=== PATIENT | female | born 1955 | race Caucasian/White ===

== ENCOUNTER 2019-09-29 20:30 | Emergency (ER) | payer MEDICARE, SELFPAY ==
[2019-09-29 20:32] VITALS: BP 152/78; PULSE 65; RESP 15; TEMP 36.8; O2SAT 99; BMI 25.8
--- NOTE | 2019-09-29 20:50 | ED_ITS ---
HPI - Back Pain/Injury General: Chief Complaint: Back Pain/Injury Stated Complaint: BACK PAIN Time Seen by Provider: 09/29/19 20:33 History of Present Illness: HPI Narrative: Patient has a history of chronic back pain. Patient has been seen Dr. Pena and he has been given pain medicine. Patient's had 2 growths that have showed up on her back months ago and she said they are causing her pain now. She had an ultrasound done on them 8 months ago and I told her thing was fine. Says they have been hurting for quite a while. MD elicited complaint: back pain Pertinent past history: prior back pain Onset (ago): month(s) Timing: intermittent Severity: moderate Similar Symptoms Previously: Yes Quality: sharp Associated symptoms: Reports no associated symptoms; Deny abdominal pain, chills, fever(s), nausea or vomiting Review of Systems Const: Denies: fever, chills or body aches Eyes: Denies: change in vision or blurry vision ENMT: Denies: throat pain or nasal congestion Card: Denies: chest pain or shortness of breath on exertion Resp: Denies: shortness of breath, productive cough or non-productive cough GI: Denies: abdominal pain, nausea or vomiting Musc: Reports: other (Chronic back pain and 2 growths on the left side near her rib area.); Denies: extremity pain Skin/Breast: Denies: rash Neuro: Denies: headache Psych: Denies: anxiety or depression Faustino/Lymph: Denies: easy bruising PFSH ED PFSH: Statuses (acute, chronic, etc) shown below reflect problem list status as previously entered and may not be historically accurate Social History Smoking and tobacco status: current every day smoker Physical Exam Const: COMMON NORMALS: no apparent distress, average body habitus and oriented x3 HENMT: COMMON NORMALS: normocephalic HEAD & SCALP: normal to inspection and normocephalic FACE & SINUS: normal facial exam Eye: COMMON NORMALS: conjunctivae normal GENERAL EYE: normal appearance of both eyes CONJUNCTIVA: Yes conjunctivae normal Neck/C-Spine: COMMON NORMALS: no JVD Chest: COMMONS NORMALS: inspection of chest normal Resp: COMMON NORMALS: normal respiratory effort and clear to auscultation bilaterally AUSCULTATION: clear to auscultation bilaterally Cardio: COMMON NORMALS: no JVD, regular rate and regular rhythm RATE: regular rate RHYTHM: regular rhythm GI: COMMON NORMALS: normal to inspection, nondistended, normoactive bowel sounds Back/Pelvis: OTHER: She has 2 areas on the left side that feel a lot like lipomas. They are tender there is no redness or erythema. They are slightly mobile BACK IMAGE (FEMALE): 1. 2. Extremity: COMMON NORMALS: normal to inspection and full ROM Neuro: COMMON NORMALS: oriented x3 Course Vital Signs: Vital signs: Vital Signs Temperature 98.3 F 09/29/19 20:32 Pulse Rate 65 09/29/19 20:32 Respiratory Rate 15 09/29/19 20:32 Blood Pressure 152/78 09/29/19 20:32 Pulse Oximetry 99 09/29/19 20:32 Coding Level of Care Code ED Die Casting Supervisor for Tuan Morrissey
[2019-09-29] MEDS: ketorolac 60 mg/2 mL INJ IM (21:03)
[2019-09-29] MEDS: HYDROcodone-acetaminophen 7.5-325 mg Tablet 1 TAB PO (21:04)
[2019-09-29 21:15] VITALS: PULSE 88; RESP 19; O2SAT 96
== END 2019-09-29 21:16 | disposition home or self-care (01) ==
PROVIDERS: Emergency Provider Nurse Practitioner Family; Family Provider Family Medicine
DX: M54.9 Dorsalgia, unspecified (principal); F17.210 Nicotine dependence, cigarettes, uncomplicated
CPT/HCPCS: 96372; 99281; J1885

== ENCOUNTER 2020-03-11 07:22 | Outpatient (CLI) | payer MEDICARE, SELFPAY ==
[2020-03-11 08:22] VITALS: BMI 24.8
--- NOTE | 2020-03-11 08:26 | ECG_ITS ---
[facility] Test Date: 2020-03-11 Pat Name: Sultana Payne Department: Room: Gender: Female Hand Nailer: Elva Argueta : 1955 Requested By: Lore Garibay Order Number: [id number] Felix MD: Lore Garibay M.D. Interpretive Statements NAME OF STUDY: LEXISCAN SESTAMIBI STRESS TEST INDICATION: Chest Pain, NOTE: Please note that this is the electrocardiogram portion of the Lexiscan/Sestamibi stress test. The perfusion scan will be documented separately. DATA: Baseline heart rate was 49 beats per minute. Baseline blood pressure was 146/71 millimeters of mercury. Target heart rate was 158. Maximum heart rate achieved was 105. which was 66 % of the predicted target heart rate. Maximum blood pressure was millimeters of mercury. The reason for ending the test was completion of the protocol. The patient did not experience any symptoms. ELECTROCARDIOGRAM: BASELINE: Sinus bradycardia. Normal axis. Otherwise, no ST-T changes suggestive of ischemia noted. No arrhythmia noted. EXERCISE: After Lexiscan injection, no ST-T changes suggestive of ischemic noted. No arrhythmia noted. CONCLUSION: Please note due to baseline abnormality of the EKG specificity and sensitivity of the EKG portion of LexiScan MIBI stress test will be low 1. EKG not suggestive of ischemia 2. Lexiscan injection unremarkable. Blood pressure response hypertensive. 3. Perfusion scan will be documented separately. Electronically Signed On 03-12-2020 17:21:15 CDT by Lore Garibay M.D. [id number]
--- NOTE | 2020-03-11 08:29 | NMCV_ITS ---
NM luisito perf SPECT r/s* [id number] Sultana Payne Age: 64 Gender: F : 1955 Exam Date: 03/11/2020 09:24 Ordering Phys: Lore Garibay MD ([email or web address]) Technologist: MER[facility] Hutchins Exam Location: [facility] Indications: SHORTNESS OF BREATH, CHEST PAIN STRESS TEST [facility] IMAGE PROTOCOL Rest/Stress 1 Lexiscan Day Radiopharmaceutical Dose (mCi) Administration Site Administered by Rest: Tc-99m 10.6 IV [facility] Sestamibi Stress:Tc-99m 32.8 IV [facility] Sestamibi Rest: 11-Mar-2020 60 Discovery 630 Stress: 11-Mar-2020 30 Discovery 630 0.4mg Lexiscan. Images obtained in supine and prone position. SPECT RESULTS Technical Quality: Good Raw Data Analysis: Subdiaphragmatic activity Image Corrections: Patient motion artifact - motion correction applied to stress images. Summed Stress Score: 1 Summed Rest Score: 0 Summed Difference Score: 1 PERFUSION FINDINGS Small area of patchy decreased tracer uptake noted in mid anterior and inferp apical wall on both rest and stress images suggestive of artifact. FUNCTIONAL RESULTS (calculated via Gated SPECT) Stress Image LV EF (%): 62 Stress EDV (mL):92 TID: 0.87 Stress ESV (mL):35 Rest Image LV EF (%): 62 FUNCTIONAL FINDINGS: There is normal left ventricular systolic function. IMPRESSIONS Myocardial perfusion imaging is normal low probability for obstructive coronary disease EKG segment will be documented separately. Lore Garibay MD (Electronically Signed) Final Date: 11 March 2020 15:52 S
[2020-03-11 10:40] VITALS: BP 135/85; PULSE 91
[2020-03-11] MEDS: regadenoson 0.4 Mg/5 ml Syringe IVP (10:42)
== END 2020-03-11 07:23 | disposition home or self-care (01) ==
LOC: CDL 07:29
PROVIDERS: PCP Family Medicine; Visit Provider Internal Medicine Cardiovascular Disease
DX: R06.02 Shortness of breath (principal); R07.9 Chest pain, unspecified
CPT/HCPCS: 78452; 93017; A9500; J2785

== ENCOUNTER 2020-05-15 14:44 | Outpatient (CLI) | payer MEDICARE, SELFPAY ==
--- NOTE | 2020-05-15 14:59 | MM_ITS ---
WS: [id number] BILATERAL SCREENING DIGITAL MAMMOGRAM WITH CAD HISTORY: SCREEN COMPARISON: 01/03/2019, 10/02/2017, 01/14/2016 Bilateral CC and MLO views submitted. Computer aided detection analyzed. Breast composition: There are scattered areas of fibroglandular density. No suspicious masses, microc alcifications or architectural distortion. Focal asymmetry and distortion in the lateral posterior LE FT breast with previously seen. No interval manager of change multiple prior years. Benign calcifications i n the lateral RIGHT breast. MM/[id number] IMPRESSION: BI-RADS: 2-Benign FOLLOW UP: 1 Year Follow-up
== END 2020-05-15 14:45 | disposition home or self-care (01) ==
LOC: RADSHAW 14:50
PROVIDERS: PCP Family Medicine; Visit Provider Family Medicine
DX: Z12.31 Encounter for screening mammogram for malignant neoplasm of breast (principal)
CPT/HCPCS: 77067

== ENCOUNTER 2021-06-25 12:42 | Outpatient (CLI) | payer MEDICARE, SELFPAY ==
--- NOTE | 2021-06-25 13:02 | MM_ITS ---
WS: [id number] BILATERAL SCREENING DIGITAL MAMMOGRAM WITH CAD HISTORY: SCREENING COMPARISON: 05/15/2020, 01/03/2019, 01/14/2016 and 10/02/2017 Bilateral CC and MLO views submitted. Computer aided detection analyzed. Breast composition: There are scattered areas of fibroglandular density. No suspicious masses, microc alcifications or architectural distortion. Asymmetry in the upper-outer quadrant of the LEFT breast i s intermittently visualized on several prior examinations. Stable since at least 2015. Benign calcifi cations lateral RIGHT breast. MM/[id number] IMPRESSION: BI-RADS: 2-Benign FOLLOW UP: 1 Year Follow-up
== END 2021-06-25 12:43 | disposition home or self-care (01) ==
LOC: RADSHAW 12:47
PROVIDERS: PCP Family Medicine; Visit Provider Family Medicine
DX: Z12.31 Encounter for screening mammogram for malignant neoplasm of breast (principal)
CPT/HCPCS: 77067

== ENCOUNTER 2021-08-05 18:20 | Emergency (ER) | payer MEDICARE, SELFPAY ==
[2021-08-05 18:25] VITALS: BP 121/76; PULSE 60; RESP 15; TEMP 37; O2SAT 98; BMI 23.6
--- NOTE | 2021-08-05 18:27 | CTR_ITS ---
PROCEDURE INFORMATION: Exam: CT Head Without Contrast Exam date and time: 08/05/2021 6:27 PM Age: 65 years old Clinical indication: Injury or trauma; Fall; Blunt trauma (contusions or hematomas); Additional info: Fall seizure TECHNIQUE: Imaging protocol: Computed tomography of the head without contrast. Radiation optimization: All CT scans at this facility use at least one of these dose optimization techniques: automated exposure control; mA and/or kV adjustment per patient size (includes targeted exams where dose is matched to clinical indication); or iterative reconstruction. COMPARISON: No relevant prior studies available. RADIATION DOSE METRICS: Total DLP (mGy-cm): 753.2 FINDINGS: Brain: Normal. No hemorrhage. Unremarkable white matter. No mass effect. Cerebral ventricles: No ventriculomegaly. Paranasal sinuses: Visualized sinuses are unremarkable. No fluid levels. Mastoid air cells: Visualized mastoid air cells are well aerated. Bones/joints: Unremarkable. No acute fracture. Soft tissues: Unremarkable. CT/CT head wo con* [id number] IMPRESSION: No acute intracranial abnormality. Radiation Dose CTDIVOL = (mGy): DLP = 753.2 (mGy-cm)
--- NOTE | 2021-08-05 18:27 | ECG_ITS ---
[facility] Test Date: 2021-08-05 Pat Name: Sultana Payne Department: Room: Gender: Female Jelly Maker: : 1955 Requested By: Tk Ford Order Number: [id number] Reading MD: ARIAS MOTTA Measurements Intervals [place] Rate: 57 P: 62 SD: 135 QRS: 71 QRSD: 93 T: 77 QT: 468 QTc: 458 Interpretive Statements SINUS BRADYCARDIA No previous ECG available for comparison Electronically Signed On 08-06-2021 14:35:31 VICE PRESIDENT EDUCATION by ARIAS MOTTA [email or web address]
--- NOTE | 2021-08-05 18:57 | CTR_ITS ---
PROCEDURE INFORMATION: Exam: CT Cervical Spine Without Contrast Exam date and time: 08/05/2021 6:57 PM Age: 65 years old Clinical indication: Injury or trauma; Fall; Blunt trauma; Additional info: Eval trauma fall TECHNIQUE: Imaging protocol: Computed tomography images of the cervical spine without contrast. Radiation optimization: All CT scans at this facility use at least one of these dose optimization techniques: automated exposure control; mA and/or kV adjustment per patient size (includes targeted exams where dose is matched to clinical indication); or iterative reconstruction. COMPARISON: CT head wo con* [id number] 08/05/2021 7:35 PM RADIATION DOSE METRICS: Total DLP (mGy-cm): 828.38 FINDINGS: Bones/joints: No acute fracture. Normal alignment. Discs/Spinal canal/Neural foramina: No significant disc protrusion. No severe spinal canal stenosis. No significant neural foraminal narrowing. Lungs: Lung apices are normal. Soft tissues: Unremarkable. CT/CT cervical spin wo con* [id number] IMPRESSION: No acute findings. Radiation Dose CTDIVOL = (mGy): DLP = 828.38 (mGy-cm)
--- NOTE | 2021-08-05 18:58 | XRR_ITS ---
PROCEDURE INFORMATION: Exam: XR Left Hand Exam date and time: 08/05/2021 6:58 PM Age: 65 years old Clinical indication: Injury or trauma; Fall; Blunt trauma (contusions or hematomas); Hand; Left; Additional info: Eval for scaphoid FX TECHNIQUE: Imaging protocol: XR Left hand. Views: 3 or more views. Total images: 3 COMPARISON: No relevant prior studies available. FINDINGS: Bones/joints: No visible acute osseous abnormality, fracture, subluxation, or dislocation. No radiographically visible joint effusion. 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 Osteopenia. Soft tissues: Unremarkable. XR/XR hand LT min 3V* [id number] IMPRESSION: Nonacute. Radiation Dose CTDIVOL = (mGy): DLP = (mGy-cm)
--- NOTE | 2021-08-05 18:58 | XRR_ITS ---
PROCEDURE INFORMATION: Exam: XR Left Ankle Exam date and time: 08/05/2021 6:58 PM Age: 65 years old Clinical indication: Injury or trauma; Fall; Blunt trauma; Ankle; Left; Additional info: Eval for ankle fracture TECHNIQUE: Imaging protocol: XR Left ankle. Views: 1 or 2 views. Total images: 2 COMPARISON: No relevant prior studies available. FINDINGS: Bones/joints: No visible acute osseous abnormality, fracture, subluxation, or dislocation. No radiographically visible joint effusion. Ankle mortise intact. Soft tissues: Unremarkable. XR/XR ankle LT 2V [id number] IMPRESSION: Nonacute. Radiation Dose CTDIVOL = (mGy): DLP = (mGy-cm)
[2021-08-05 19:09] VITALS: BP 134/60; PULSE 66; RESP 19; O2SAT 99
--- NOTE | 2021-08-05 19:44 | ED_ITS ---
HPI - General Adult General: Chief complaint: Fall Stated complaint: FALL, SEIZURE LIKE ACTIVITY Time Seen by Provider: 08/05/21 18:26 History of Present Illness: HPI narrative: Patient is a 65-year-old female with a history of fibromyalgia, previous opiate dependence who presents the emergency room after possible episode of seizure after an episode of fall. Patient was walking down the basement when she tripped and fell down 12-15 steps. Patient was carried upstairs by family when patient was noted to have a witnessed tonic-clonic shaking on the right side. Episode was described family lasting for 30 seconds at a time. Family reports the patient was mildly confused after and called EMS. By the time arrived, patient is GCS 15, AAOx3. Patient reports pain in the left wrist, and left ankle. Denies any history of seizures in the past. Had no associated chest pain, shortness breath palpitation, lightheadedness prior to the episode of fall. Patient is on any blood thinner. Onset: 30 minutes ago Duration:once Location:home Severity:moderate/severe Review of Systems Narrative: Constitutional: No fever, no chills. HEENT: No vision changes CV: No chest pain, no palpitations PULM: no cough, no dyspnea. GI: No abdominal pain, no N/V/D. : No dysuria MSKEL: No muscle pain, +L ankle/+L wrist pain SKIN: No new rashes, no lesions. NEURO: No headache, no focal weakness. +headache, +1 episode of possible seizure earlier HEME: No visible bruises PSYCH: Normal mood PFSH ED PFSH: Medical History (Updated 08/05/21 @ 19:43 by Tk Ford MD) Chest pain Fibromyalgia Shortness of breath Surgical History (Updated 08/04/21 @ 12:26 by Gayatri Cheng DO) Hx of right knee surgery Family History Grandmother CAD (coronary artery disease) Cancer Grandfather CAD (coronary artery disease) Mother CAD (coronary artery disease) Cancer Son CAD (coronary artery disease) Denies family history of Diabetes Clotting disorder Dementia Hyperlipidemia Psychiatric illness Chronic kidney disease (CKD) Suicide Anesthesia complication Bleeding disorder Family history of premature coronary artery disease Lung disease Hypertension Stroke Social History (Reviewed 08/03/21 @ 09:05 by ROYA Apple Smoking and tobacco status: current every day smoker cigarettes Packs smoked per day: 1.5 Years cigarettes smoked: 25 Physical Exam Narrative: EXAM NARRATIVE: Head: Atraumatic Eyes: PERRL, conjunctiva without injection ENT: Mucous membrane moist NECK: Supple, ROM intact LUNGS: LCTAB, no crackles/rhonchi CV: RRR ABDOMEN: Soft, nontender in all quadrants EXTREMITY: Normal ROM, +mild medial/lateral ankle tenderness, able to bear weight on the L ankle, 2+ DP/PT pulses L side, +mild L scaphoid tenderness, 2+ radial pulse L forearm, no other focal tenderness to palpation, neurovascular exam intact in all extremities SKIN: No rash or erythema NEURO: Mental status? Awake, alert, and oriented to self, year, month, location, and situation.? Following simple axial and appendicular commands.? Has appropriate fund of knowledge, comprehension, and insight.? Able to recall and understands pertinent aspects of medical history and current treatment status.? ? Language? Speech is fluent without word-finding difficulties.? Intact naming, expression, power line installer, and repetition.? ? Cranial nerves? 2,3,4,6: PERRL, EOMI with no nystagmus. 5: Intact sensation to light touch, symmetric? 7: Smile symmetrical, no facial droop.? 8: Hearing grossly intact.? 9,10: Normal palate movement.? 11: Normal strength in trapezius bilaterally 12: Tongue protrudes midline.? ? Motor examination? Normal bulk & tone. Strength as follows (R/L): Delts (5/5), Biceps (5/5), Triceps (5/5), Wrist ext (5/5), hip flexors (5/5), plantarflexors (5/5), dorsiflexors (5/5). Sensation? Light Touch: Grossly intact and equal in upper and lower extremities bilaterally? Romberg: Negative.? Distal joint position sense intact ? Coordination? Tzrbos-te-egbz-finger movements intact without dysmetria or past-pointing.? Rapid fingertaps: preserved amplitude without decriment.? No tremor, myoclonus or truncal ataxia.? ? Gait/stance? Steady, normal narrow base gait with appropriate arm swing and turning.? Tandem gait without hesitation or loss of balance. PSYCH: Normal mood and affect Course Vital Signs: Vital signs: Vital Signs Temperature 98.6 F 08/05/21 18:25 Pulse Rate 98 08/05/21 22:37 Respiratory Rate 10 L 08/05/21 22:37 Blood Pressure 134/60 08/05/21 22:37 Pulse Oximetry 98 08/05/21 22:37 MDM - General Adult MDM Narrative: Medical decision making narrative: Patient is a 65-year-old female presenting to the emergency room after concerns for shaking from a fall. On exam, patient has focal tenderness on the L wrist and L ankle. Neuro exam intact. CT brain did not show any signs of acute brain bleed. X-ray of the hand negative for any fractures. X-ray of ankle negative for any acute fractures. Patient placed in a thumb spica given concerns for scaphoid area tenderness. Directed to follow-up with primary care provider for repeat x-ray in 1 week to ensure that there is no skin scaphoid fracture. Patient verbalized understanding of everything discussed today. Laboratory work-up including H&H, troponin within normal limit. EKG is nonischemic today. Since patient has n ever had a history of seizure, have given patient follow with PCP for further evaluation of seizure-like/shaking-like activity after the fall. Patient is instructed not to swim, bathe, shower, or drive by herself until cleared by provider. Given directions to remove splint in the case of compartment syndrome. Rx tylenol, menthol and lidocaine patch PRN pain Disposition: Discharge. Patient counseled regarding diagnostic impression, treatment plan. Patient given ED strict return precautions to return for continuation, worsening, or development of new symptoms. Instructed to f/u w/ PCP and Neurology regarding symptoms today. Patient verbalized understanding. Lab Data: Labs: Lab Results 08/05/21 08/05/21 08/05/21 20:50 20:50 20:50 WBC 10.7 10^3/uL H 10 ^3/uL (4.0-10.0) RBC 4.03 10^6/uL L 10 ^6/uL (4.1-5.3) Hgb 12.0 g/dL g/dL (11.5-15.3) Hct 38.7 % % (37.0-47.0) MCV 96.0 fl fl (81-99) MCH 29.8 pg pg (28.0-34.0) MCHC 31.0 g/dL g/dL (30.0-36.0) RDW 14.2 % % (12.1-15.1) Plt Count 228 10^3/cmm 10^3 /cmm (130-400) MPV 10.3 fL fL (7.4-10.4) Neut % (Auto) 75.9 % % Lymph % (Auto) 18.2 % % Adams % (Auto) 4.2 % % Eos % (Auto) 0.8 % % Baso % (Auto) 0.5 % % Neut # (Auto) 8.11 10^3/uL H 10 ^3/uL (1.8-7.7) Lymph # (Auto) 1.9 10^3/uL 10^3/ uL (0.8-4.8) Adams # (Auto) 0.5 10^3/uL 10^3/ uL (0.2-0.9) Eos # (Auto) 0.1 10^3/uL 10^3/ uL (0.0-0.8) Baso # (Auto) 0.1 10^3/uL 10^3/ uL (0.0-0.1) Nucleated RBC % (a uto) 0 % % Nucleated RBCs # 0.0 /100WBC /100W BC PT 12.70 SECONDS SEC ONDS (12.1-14.9) INR 0.93 (0.8-1.2) APTT 28.3 SECONDS SECO NDS (23.9-36.7) Sodium 140 mmol/L mmol/L (136-145) Potassium 3.4 mmol/L L mmol /L (3.5-5.1) Chloride 110 mmol/L H mmol /L (98-107) Carbon Dioxide 19 mmol/L L mmol/ L (22-29) Anion Gap 14.4 (5-19) BUN 5 mg/dL L mg/dL (8-23) Creatinine 0.5 mg/dL mg/dL (0.5-0.9) GFR Calculation 124.6 mL/min mL/m in (90-130) Glucose 77 mg/dL mg/dL (65-115) Calculated Osmolal ity 286 mOsm/kg mOsm/ kg (285-295) Calcium 7.0 mg/dL L mg/dL (8.5-10.5) Magnesium 1.4 mg/dL L mg/dL (1.7-2.3) Total Bilirubin 0.2 mg/dL mg/dL (0.15-1.2) AST 16 U/L U/L (0-32) ALT 7 U/L U/L (0-33) Alkaline Phosphata se 72 IU/L IU/L (35-105) Troponin T Gen 5 n g/L Total Protein 4.8 g/dL L g/dL (6.6-8.7) Albumin 3.3 g/dL L g/dL (3.5-5.2) Globulin 1.5 g/dL g/dL (1.3-4.6) Lipase 28 U/L U/L (13-60) SARS-CoV-2 Ag (Rap id) 08/05/21 08/05/21 20:50 20:50 WBC RBC Hgb Hct MCV MCH MCHC RDW Plt Count MPV Neut % (Auto) Lymph % (Auto) Adams % (Auto) Eos % (Auto) Baso % (Auto) Neut # (Auto) Lymph # (Auto) Adams # (Auto) Eos # (Auto) Baso # (Auto) Nucleated RBC % (a uto) Nucleated RBCs # PT INR APTT Sodium Potassium Chloride Carbon Dioxide Anion Gap BUN Creatinine GFR Calculation Glucose Calculated Osmolal ity Calcium Magnesium Total Bilirubin AST ALT Alkaline Phosphata se Troponin T Gen 5 n g/L 6 ng/L ng/L (0-10) Total Protein Albumin Globulin Lipase SARS-CoV-2 Ag (Rap id) Negative (Negative) Imaging Data^: Other Imaging: Radiologist's impression: [address] [id number] Scan ReportSigned Patient: Sultana Payne SUnit #: [id number]: [id number] t#:[id number]/Sex: 65 / FADM Date: 08/05/21Loc: ERRoom/Bed:Attending Dr: Ordering Provider/Ordering MD: Tk Ford MD Date of Service: 08/05/21 Procedure(s): CT cervical spin wo con* [id number] Accession Number(s): [id number] Report Number: [id number] PROCEDURE INFORMATION: Exam: CT Cervical Spine Without Contrast Exam date and time: 08/05/2021 6:57 PM Age: 65 years old Clinical indication: Injury or trauma; Fall; Blunt trauma; Additional info: Eval trauma fall TECHNIQUE: Imaging protocol: Computed tomography images of the cervical spine without contrast. Radiation optimization: All CT scans at this facility use at least one of these dose optimization techniques: automated exposure control; mA and/or kV adjustment per patient size (includes targeted exams where dose is matched to clinical indication); or iterative reconstruction. COMPARISON: CT head wo con* [id number] 08/05/2021 7:35 PM RADIATION DOSE METRICS: Total DLP (mGy-cm): 828.38 FINDINGS: Bones/joints: No acute fracture. Normal alignment. Discs/Spinal canal/Neural foramina: No significant disc protrusion. No severe spinal canal stenosis. No significant neural foraminal narrowing. Lungs: Lung apices are normal. Soft tissues: Unremarkable. CT/CT cervical spin wo con* [id number] IMPRESSION: No acute findings. Radiation Dose CTDIVOL = (mGy): DLP = 828.38 (mGy-cm) Dictated By:Juancho Lopez DOSigned By:Juancho Lopez DOSigned Date/Time:08/05/21/ [address] [id number] Scan ReportSigned Patient: Sultana Payne SUnharmeet #: [id number]: 1955[facility]#:[id number]/Sex: 65 / FADM Date: 08/05/21Loc: ERRoom/Bed:Attending Dr: Ordering Provider/Ordering MD: Tk Ford MD Date of Service: 08/05/21 Procedure(s): CT head wo con* [id number] Accession Number(s): [id number] Report Number: [id number] PROCEDURE INFORMATION: Exam: CT Head Without Contrast Exam date and time: 08/05/2021 6:27 PM Age: 65 years old Clinical indication: Injury or trauma; Fall; Blunt trauma (contusions or hematomas); Additional info: Fall seizure TECHNIQUE: Imaging protocol: Computed tomography of the head without contrast. Radiation optimization: All CT scans at this facility use at least one of these dose optimization techniques: automated exposure control; mA and/or kV adjustment per patient size (includes targeted exams where dose is matched to clinical indication); or iterative reconstruction. COMPARISON: No relevant prior studies available. RADIATION DOSE METRICS: Total DLP (mGy-cm): 753.2 FINDINGS: Brain: Normal. No hemorrhage. Unremarkable white matter. No mass effect. Cerebral ventricles: No ventriculomegaly. Paranasal sinuses: Visualized sinuses are unremarkable. No fluid levels. Mastoid air cells: Visualized mastoid air cells are well aerated. Bones/joints: Unremarkable. No acute fracture. Soft tissues: Unremarkable. CT/CT head wo con* [id number] IMPRESSION: No acute intracranial abnormality. Radiation Dose CTDIVOL = (mGy): DLP = 753.2 (mGy-cm) Dictated By:Juancho Lopez DOSigned By:Juancho Lopez DOSigned Date/Time:08/05/212049DD/ 26 Discharge Plan Discharge Patient Disposition: Home Clinical Impression: Fall, Episode of shaking, Pain in wrist, Ankle pain, Concussion Condition: Stable Prescriptions: New lidocaine 5 % adhesive patch,medicated 1 patch topical DAILY PRN (Reason: pain) 10 Days Qty: 10 RF: 0 Biofreeze (menthol) 5 % gel 1 ea topical BID PRN (Reason: pain) 10 Days Qty: 1 RF: 0 No Action alprazolam [Xanax] 0.25 mg tablet 0.25 mg PO TID RF: 0 gabapentin 300 mg capsule 300 mg PO BID RF: 0 loratadine [Allergy Relief (loratadine)] 10 mg tablet 10 mg PO DAILY Qty: 90 RF: 4 isosorbide mononitrate 30 mg tablet extended release 24 hr 15 mg PO BID Qty: 90 RF: 4 nitroglycerin [Nitrostat] 0.4 mg tablet, sublingual 0.4 mg SUBLINGUAL Q5M PRN (Reason: chest pain) Qty: 25 RF: 3 omeprazole 20 mg capsule,delayed release(DR/EC) 20 mg PO BID Qty: 180 RF: 4 hydrocodone-acetaminophen 5-300 mg tablet 1 tab PO Q6H PRN (Reason: pain) Qty: 7 RF: 0 Discharge Orders: Discharge ED (Routine); Ordered 08/05/21 Ordered By: Tk Ford Referrals: Chel Mckenzie MD [Primary Care Provider] - Discharge Diet: Advance as tolerated Discharge Activity: Resume usual activity Patient Instructions: Concussion/Head Injury - Adult, Wrist Injury (ED), Concussion (ED), Acute Headache (ED) Activity Restrictions/Additional Instructions: Follow-up with your primary provider in the next week to repeat your x-ray to ensure that there is no fracture. Please wear the wrist splint for support at this time. Come back to the emergency room for new or concerning complaints. Given concerns for new onset of seizure, I will make an appointment with PCP see determine whether the episode of shaking was actually seizure. Please do not swim, shower, bathe, or drive on your own until cleared by a medical provider. Come back to the emergency room you have any further episodes of shaking, fever/chills, nausea/vomiting, acute weakness, headache, or any new or concerning complaints. Coding Level of Care Code ED Veterans' Counselor for Tuan Morrissey
--- NOTE | 2021-08-05 19:57 | XRR_ITS ---
PROCEDURE INFORMATION: Exam: XR Left Wrist Exam date and time: 08/05/2021 7:57 PM Age: 65 years old Clinical indication: Injury or trauma; Fall; Blunt trauma (contusions or hematomas); Wrist; Left TECHNIQUE: Imaging protocol: XR Left wrist. Views: 1 or 2 views. Total images: 1 COMPARISON: CR (UP EXM, ) 08/05/2021 7:43 PM FINDINGS: Bones/joints: No visible acute osseous abnormality, fracture, subluxation, or dislocation. No radiographically visible joint effusion. 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 Osteopenia. Soft tissues: Unremarkable. XR/XR wrist LT 1V [id number] IMPRESSION: Nonacute. Radiation Dose CTDIVOL = (mGy): DLP = (mGy-cm)
[2021-08-05 20:09] VITALS: BP 126/70; PULSE 62; RESP 14; O2SAT 98
[2021-08-05 21:09] VITALS: BP 134/60; PULSE 51; RESP 10; O2SAT 98
[2021-08-05] MEDS: acetaminophen-codeine 300-30mg Tablet 1 TAB PO (21:09)
[2021-08-05 21:10] LABS: Basophils # 0.1 10^3/uL (0.0-0.1); Basophils % 0.5 %; Eosinophils # 0.1 10^3/uL (0.0-0.8); Eosinophils % 0.8 %; Hematocrit 38.7 % (37.0-47.0); Lymphocytes # 1.9 10^3/uL (0.8-4.8); Lymphocytes % 18.2 %; Mean Corpuscular Hemoglobin 29.8 pg (28.0-34.0); Mean Platelet Volume 10.3 fL (7.4-10.4); Monocytes # 0.5 10^3/uL (0.2-0.9); Monocytes % 4.2 %; Neutrophils # 8.11 10^3/uL (1.8-7.7); Neutrophils % 75.9 %; Nucleated Red Blood Cells % 0 %; Platelet Count 228 10^3/cmm (130-400); Red Blood Count 4.03 10^6/uL (4.1-5.3); Red Cell Distribution Width 14.2 % (12.1-15.1); White Blood Count 10.7 10^3/uL (4.0-10.0)
[2021-08-05 21:20] LABS: INR 0.93 (0.8-1.2)
[2021-08-05 21:21] LABS: Partial Thromboplastin Time 28.3 SECONDS (23.9-36.7)
[2021-08-05 21:33] LABS: Alanine Aminotransferase 7 U/L (0-33); Albumin Level 3.3 g/dL (3.5-5.2); Alkaline Phosphatase 72 IU/L (35-105); Aspartate Amino Transferase 16 U/L (0-32); Blood Urea Nitrogen 5 mg/dL (8-23); Carbon Dioxide 19 mmol/L (22-29); Chloride 110 mmol/L (98-107); Globulin 1.5 g/dL (1.3-4.6); Glomerular Filtration Rate 124.6 mL/min (90-130); Glucose 77 mg/dL (65-115); Lipase 28 U/L (13-60); Magnesium 1.4 mg/dL (1.7-2.3); Osmolality Calculated 286 mOsm/kg (285-295); Sodium 140 mmol/L (136-145); Total Bilirubin 0.2 mg/dL (0.15-1.2); Total Protein 4.8 g/dL (6.6-8.7); Troponin T (5th) Once 6 ng/L (0-10)
[2021-08-05 21:34] LABS: Anion Gap 14.4 (5-19); Potassium 3.4 mmol/L (3.5-5.1)
[2021-08-05 21:35] LABS: SARS Covid-2 Antigen Negative (Negative)
[2021-08-05 22:37] VITALS: BP 134/60; PULSE 98; RESP 10; O2SAT 98
--- NOTE | 2021-08-16 13:51 | DCPLANNER ---
manager of employee relations had message to speak with patient about getting established with a primary care physician. manager of employee relations spoke with patient, she stated that she has a primary care physician, that she sees. No case management services needed at this time.
== END 2021-08-05 22:00 | disposition home or self-care (01) ==
PROVIDERS: Emergency Provider Emergency Medicine; PCP Family Medicine
DX: M25.572 Pain in left ankle and joints of left foot (principal); S06.0X0A Concussion without loss of consciousness, initial encounter; W10.9XXA Fall (on) (from) unspecified stairs and steps, initial encounter; Y92.018 Other place in single-family (private) house as the place of occurrence of the external cause; R56.9 Unspecified convulsions; M25.532 Pain in left wrist
CPT/HCPCS: 70450; 72125; 73100; 73130; 73600; 80053; 83690; 83735; 84484; 85025; 85610; 85730; 87426; 93005; 99284

== ENCOUNTER 2021-08-11 18:57 | Outpatient (CLI) | payer MEDICARE, SELFPAY ==
--- NOTE | 2021-08-11 19:35 | XR_ITS ---
WS: [email or web address] Left wrist, 3 views, 08/11/2021 Clinical Data: LT. WRIST PAIN Comparison: Left wrist, 08/05/2021. Findings: There is osteoarthritis at the base of the left first metacarpal. There are no fractures or dislocati ons. The soft tissues are normal. XR/XR wrist LT min 3V* [id number] Impression: Osteoarthritis at the base of the left first metacarpal.
== END 2021-08-11 18:58 | disposition home or self-care (01) ==
PROVIDERS: PCP Family Medicine; Visit Provider Family Medicine
DX: M25.532 Pain in left wrist (principal); M19.042 Primary osteoarthritis, left hand
CPT/HCPCS: 73110

== ENCOUNTER 2021-08-12 17:44 | Outpatient (CLI) | payer MEDICARE, SELFPAY ==
--- NOTE | 2021-08-12 17:57 | XR_ITS ---
WS: [email or web address] Left knee, 3 views, 08/12/2021 Clinical Data: left knee pain Comparison: Left leg, 05/17/2015. Findings: No fractures or dislocations are seen. There is medial joint compartment narrowing. There are small s purs of the medial femoral condyle and medial tibial plateau. The patella is intact. There is a small posterior superior patellar spur. The soft tissues are unremarkable. XR/XR knee LT 3V* [id number] Impression: Mild osteoarthritis. Kellgren-Darrell Classification: grade 2 (minimal): definite osteophytes and p ossible joint space narrowing
== END 2021-08-12 17:45 | disposition home or self-care (01) ==
LOC: RAD 17:48
PROVIDERS: Visit Provider Family Medicine
DX: M17.12 Unilateral primary osteoarthritis, left knee (principal)
CPT/HCPCS: 73562

== ENCOUNTER → 2022-01-05 13:16 | Outpatient (BNVA) | payer MEDICARE, SELFPAY | PROVIDERS: Visit Provider Internal Medicine | DX: R07.9 Chest pain, unspecified (principal); R06.02 Shortness of breath; F17.210 Nicotine dependence, cigarettes, uncomplicated | CPT/HCPCS: 99213 ==

== ENCOUNTER → 2023-01-04 13:23 | Outpatient (BNVA) | payer MEDICARE, SELFPAY | PROVIDERS: Visit Provider Internal Medicine | DX: R07.9 Chest pain, unspecified (principal); F17.210 Nicotine dependence, cigarettes, uncomplicated | CPT/HCPCS: 99214 ==

== ENCOUNTER 2023-01-23 13:09 | Emergency (ER) | payer MEDICARE, SELFPAY ==
[2023-01-23 13:11] VITALS: BP 106/65; PULSE 74; RESP 17; TEMP 36.8; O2SAT 94
--- NOTE | 2023-01-23 13:19 | CT_ITS ---
WS: [id number] CT CERVICAL SPINE HISTORY: trauma TECHNIQUE: Contiguous 2.0 mm axial imaging performed through the entire cervical spine. Sagittal and coronal reformats also performed. All CT scans at [facility] use at least one of these dose o ptimization techniques: automated exposure control; mA and/or kV adjustment per patient size (include s targeted exams where dose is matched to clinical indication); or iterative reconstruction. DLP: 1313.25 mGy.cm COMPARISON: 08/05/2021 Straightening and curvature is normal cervical lordosis. Craniocervical junction is normal. Mild narr owing of the predental space. Facets are normally aligned. Disc spaces are narrowed with desiccation. No acute fracture. C2-C3: Normal. C3-C4: Very mild foraminal narrowing due to osteophyte disease. C4-C5: Mild diffuse osteophytic ridging. Mild bilateral foraminal stenosis. C5-C6: Osteophytic ridging with mild foraminal stenosis. C6-C7: Osteophytic ridging with LEFT foraminal stenosis. C7-T1: Normal. Soft tissues are normal. Lung apices are clear. CT/CT cervical spin wo con* [id number] IMPRESSION: 1. No cervical spine fracture. 2. Degenerative scoliosis and vertebral body osteophytes. Mild stenosis as abo ve.
--- NOTE | 2023-01-23 13:23 | CT_ITS ---
WS: [id number] CT HEAD NONCONTRAST HISTORY: trauma TECHNIQUE: Contiguous axial imaging performed through the brain in 2.5 mm imaging. Bone and soft tiss ue windows. Sagittal and coronal reformats reviewed. All CT scans at [facility] use at least one of these dose optimization techniques: automated exposure control; mA and/or kV adjustment per pa tient size (includes targeted exams where dose is matched to clinical indication); or iterative recon struction. DLP: 1313.25 mGy.cm COMPARISON: 08/05/2021 No acute intracranial hemorrhage, midline shift or mass effect. No atrophy or prior infarcts or herniation. Ventricles: Normal size with no hydrocephalus. No inferior displacement of cerebellar tonsils. Paranasal sinuses: Mild mucoperiosteal thickening LEFT maxillary sinus. Mastoid air cells: Well pneumatized. Calvarium and scalp: Skull is intact with no soft tissue edema or swelling. CT/CT head wo con* [id number] IMPRESSION: 1. No acute intracranial hemorrhage or edema. 2. Mild small vessel ischemic disease. Stable since 08/05/2021.
--- NOTE | 2023-01-23 13:23 | XRR_ITS ---
PROCEDURE INFORMATION: Exam: XR Chest Exam date and time: 01/23/2023 1:30 PM Age: 67 years old Clinical indication: Cough and dyspnea; Additional info: Dyspnea/cough TECHNIQUE: Imaging protocol: Radiologic exam of the chest. Views: 1 view. COMPARISON: CT cervical spin wo con* [id number] 08/05/2021 7:38 PM FINDINGS: Lungs: Bibasilar right greater than left atelectasis versus minimal infiltrate. Pleural spaces: Unremarkable. No pleural effusion. No pneumothorax. Heart/Mediastinum: Unremarkable. No cardiomegaly. Bones/joints: Unremarkable. XR/XR chest 1V portable [id number] IMPRESSION: Bibasilar right greater than left atelectasis versus minimal infiltrate.
--- NOTE | 2023-01-23 13:41 | W.ED.SYNCOPE ---
HPI - Syncope General: Chief Complaint: Syncope Stated Complaint: fall Time Seen by Provider: 01/23/23 13:19 Source: patient Mode of arrival: ambulatory History of Present Illness: 67-year-old female presents emergency room with a syncopal episode. She states she was rather refrigerator was making something of her got very dizzy fell she hit her head on the refrigerator door. There is a home health nurse there at the time evidently and report of a 3-minute loss of consciousness. She is denying any head or neck pain at this time. No specific pain anywhere states she has felt weak for the last 1 to 2 days. No chest pain no abdominal pain. MD complaint: collapsed Onset (ago): minute(s) Prodromal symptoms: lightheaded and other (Dizzy) Witnessed: Yes - by Bystander Context: standing up Injuries sustained associated with event: neck and head Associated symptoms: Deny abdominal pain, chest pain, fever(s), headache(s), lightheadedness, nausea, short of breath, vertigo or weakness Treatments prior to arrival: none Review of Systems Const: Reports: fatigue and malaise; Denies: fever(s) or chills ENMT: Denies: throat pain, ear or mastoid pain, nasal discharge or nasal congestion Card: Denies: chest pain or lightheadedness Resp: Denies: dyspnea, productive cough or non-productive cough GI: Denies: abdominal pain or nausea : Denies: flank pain, difficulty voiding, dysuria, urinary frequency or urinary urgency Skin/Breast: Denies: rash or pruritus Neuro: Denies: headache(s) or vertigo PFSH ED PFSH: Medical History Chest pain Fibromyalgia Shortness of breath Surgical History Hx of right knee surgery Family History Grandmother CAD (coronary artery disease) Cancer Grandfather CAD (coronary artery disease) Mother CAD (coronary artery disease) Cancer Son CAD (coronary artery disease) Denies family history of Diabetes Clotting disorder Dementia Hyperlipidemia Psychiatric illness Chronic kidney disease (CKD) Suicide Anesthesia complication Bleeding disorder Family history of premature coronary artery disease Lung disease Hypertension Stroke Social History Smoking and tobacco status: current every day smoker cigarettes Packs smoked per day: 1.5 Years cigarettes smoked: 25 Physical Exam Const: GENERAL APPEARANCE: cooperative and comfortable ORIENTATION/CONSCIOUSNESS: Yes awake, Yes oriented to person, Yes oriented to place and Yes oriented to time HENMT: COMMON NORMALS: normocephalic, atraumatic and hearing grossly normal bilaterally HEAD & SCALP: normocephalic and atraumatic Resp: COMMON NORMALS: normal respiratory effort, No retractions, No use of accessory muscles and clear to auscultation bilaterally AUSCULTATION: clear to auscultation bilaterally Cardio: COMMON NORMALS: regular rate, regular rhythm and No murmurs present (Cardio) RATE: regular rate RHYTHM: regular rhythm GI: COMMON NORMALS: Soft to palpation and No hepatosplenomegaly present AUSCULTATION: Yes normoactive bowel sounds PALPATION: Yes Soft to palpation, No Tenderness to palpation present (GI), No Guarding due to palpation present (GI) and Yes No hepatosplenomegaly present Extremity: COMMON NORMALS: normal to inspection, capillary refill normal, no clubbing, cyanosis or edema, no calf tenderness and no pedal edema Neuro: SENSORIUM/ORIENTATION: Yes oriented to person, Yes oriented to place and Yes oriented to time Skin: COMMON NORMALS: no rashes or lesions noted GENERAL SKIN EXAM: no rashes or lesions noted Course Vital Signs: Vital signs: Vital Signs Temperature 98.3 F 01/23/23 13:11 Pulse Rate 85 01/23/23 18:01 Respiratory Rate 18 01/23/23 18:01 Blood Pressure 106/58 01/23/23 18:01 Pulse Oximetry 98 01/23/23 18:01 Oxygen Delivery Me thod Room Air 01/23/23 16:00 MDM - Syncope Medical Decision Making Orthostatic syncopal episodes. Patient given IV fluids. She previously has had stress testing that was negative. Second troponin is pending. Anticipate discharge with decreasing or stopping isosorbide completely. She is getting a second liter of fluids at this time. Initial EKG does not show any acute ST changes she is having no pain at this time imaging showed a right distal fibula fracture for which we will make her nonweightbearing and refer to Ortho she states she is unable to use crutches DME order was written for a wheelchair. CT of her head and neck are negative for acute injury. Medical Records I reviewed the patient's medical records. Lab Data I reviewed the patient's lab results. 01/23/23 13:24 01/23/23 13:24 Radiology Impressions Cervical Spine CT 01/23/23 13:19 IMPRESSION: 1. No cervical spine fracture. 2. Degenerative scoliosis and vertebral body osteophytes. Mild stenosis as above. Chest X-Ray 01/23/23 13: IMPRESSION: Bibasilar right greater than left atelectasis versus minimal infiltrate. Head CT 01/23/23 13:23 IMPRESSION: 1. No acute intracranial hemorrhage or edema. 2. Mild small vessel ischemic disease. Stable since 08/05/2021. Ankle X-Ray 01/23/23 16:01 IMPRESSION: Distal right fibula fracture. Laboratory Results WBC 13.8 10^3/uL (4.0-10.0) H 01/23/23 13:24 RBC 4.39 10^6/uL (4.1-5.3) 01/23/23 13:24 Hgb 13.0 g/dL (11.5-15.3) 01/23/23 13:24 Hct 40.1 % (37.0-47.0) 01/23/23 13:24 MCV 91.3 fl (81-99) 01/23/23 13:24 MCH 29.6 pg (28.0-34.0) 01/23/23 13:24 MCHC 32.4 g/dL (30.0-36.0) 01/23/23 13:24 RDW 14.7 % (12.1-15.1) 01/23/23 13:24 Plt Count 280 10^3/cmm (130-400) 01/23/23 13:24 MPV 10.6 fL (7.4-10.4) H 01/23/23 13:24 Neut % (Auto) 74.8 % 01/23/23 13:24 Lymph % (Auto) 15.2 % 01/23/23 13:24 [place] % (Auto) 8.5 % 01/23/23 13:24 Eos % (Auto) 0.4 % 01/23/23 13:24 Baso % (Auto) 0.4 % 01/23/23 13:24 Neut # (Auto) 10.33 10^3/uL (1.8-7.7) H 01/23/23 13:24 Lymph # (Auto) 2.1 10^3/uL (0.8-4.8) 01/23/23 13:24 [place] # (Auto) 1.2 10^3/uL (0.2-0.9) H 01/23/23 13:24 Eos # (Auto) 0.1 10^3/uL (0.0-0.8) 01/23/23 13:24 Baso # (Auto) 0.1 10^3/uL (0.0-0.1) 01/23/23 13:24 Nucleated RBC % (auto) 0 % 01/23/23 13:24 Nucleated RBCs # 0.0 /100WBC 01/23/23 13:24 Sodium 134 mmol/L (136-145) L 01/23/23 13:24 Potassium 3.4 mmol/L (3.5-5.1) L 01/23/23 13:24 Chloride 97 mmol/L (98-107) L 01/23/23 13:24 Carbon Dioxide 27 mmol/L (22-29) 01/23/23 13:24 Anion Gap 13.4 (5-19) 01/23/23 13:24 BUN 11 mg/dL (8-23) 01/23/23 13:24 Creatinine 0.9 mg/dL (0.5-0.9) 01/23/23 13:24 GFR Calculation 62.8 mL/min (90-130) L 01/23/23 13:24 Glucose 99 mg/dL (65-115) 01/23/23 13:24 Calculated Osmolality 277 mOsm/kg (285-295) L 01/23/23 13:24 Calcium 8.5 mg/dL (8.5-10.5) 01/23/23 13:24 Total Bilirubin 0.5 mg/dL (0.15-1.2) 01/23/23 13:24 AST 19 U/L (0-32) 01/23/23 13:24 ALT 10 U/L (0-33) 01/23/23 13:24 Alkaline Phosphatase 87 U/L (35-105) 01/23/23 13:24 Troponin T Baseline 8 ng/L (0-10) 01/23/23 13:24 Troponin T 120 Minute 8.06 ng/L (0-10) 01/23/23 15: Delta Troponin T 0.06 ABS# (0-10) 01/23/23 15: Total Protein 6.1 g/dL (6.6-8.7) L 01/23/23 13:24 Albumin 3.4 g/dL (3.5-5.2) L 01/23/23 13:24 Globulin 2.7 g/dL (1.3-4.6) 01/23/23 13:24 Urine Color Dark yellow (Yellow) 01/23/23 14:27 Urine Appearance Clear (CLEAR) 01/23/23 14:27 Urine pH 6 (5-7) 01/23/23 14:27 Ur Specific [place] 1.015 (1.005-1.030) 01/23/23 14:27 Urine Protein 1+ (Negative) H 01/23/23 14:27 Urine Glucose (UA) Norm (Normal) 01/23/23 14:27 Urine Ketones Negative (Negative) 01/23/23 14:27 Urine Blood Neg (Negative) 01/23/23 14: Urine Nitrate Negative (Negative) 01/23/23 14: Urine Bilirubin Neg (Negative) 01/23/23 14:27 Urine Urobilinogen Norm mg/dL (Negative) 01/23/23 14:27 Ur Leukocyte Esterase 2+ (Negative) H 01/23/23 14:27 Urine RBC None /hpf (0-2) 01/23/23 14:27 Urine WBC 15-25 /hpf (0-5) H 01/23/23 14:27 Ur Squamous Epith Cells 5-10 /hpf (0-5) H 01/23/23 14:27 Amorphous Sediment Not Reportable 01/23/23 14:27 Urine Bacteria 1+ /hpf (NONE) H 01/23/23 14:27 Urine Mucus 1+ /hpf 01/23/23 14:27 Discharge Plan Discharge Patient Disposition: Home Clinical Impression: Fracture of distal end of fibula, Syncope due to orthostatic hypotension Condition: Stable Prescriptions: No Action gabapentin 300 mg capsule 300 mg PO TID alprazolam [Xanax] 0.25 mg tablet 0.25 mg PO BID nitroglycerin [Nitrostat] 0.4 mg tablet, sublingual 0.4 mg SUBLINGUAL Q5M PRN (Reason: chest pain) Qty: 25 3RF Rx Instructions: do not exceed 3 doses per episode omeprazole 20 mg capsule,delayed release(DR/EC) 20 mg PO BID Qty: 180 4RF isosorbide mononitrate 30 mg tablet extended release 24 hr 15 mg PO BID Qty: 90 4RF hydrocodone-acetaminophen 5-300 mg tablet 1 tab PO Q6H PRN (Reason: pain) Qty: 7 0RF simvastatin 20 mg tablet 20 mg PO QPM Vitamin C 500 mg Capsule, Extended Release 500 mg PO DAILY duloxetine 30 mg capsule,delayed release(DR/EC) 30 mg PO DAILY duloxetine 60 mg capsule,delayed release(DR/EC) 60 mg PO DAILY Fish Oil 300-1,000 mg Capsule 1 cap PO DAILY vitamin [id number] acid 2,500-400 mcg Tablet,Disintegrating 1 tab PO DAILY Discharge Orders: Discharge ED (Routine); Ordered 01/23/23 Ordered By: Scottie Healy Other Ambulatory Orders: DME: Wheelchair (Order) Location: None Selected Ordered By: Scottie Healy Referrals: Chel Mckenzie MD [Primary Care Provider] - Discharge Diet: Usual diet Discharge Activity: Limit activity as instructed Patient Instructions: Opioid Safety, Pain Management Activity Restrictions/Additional Instructions: You were seen today for fall. You have a fracture of the distal end of your right fibula. You should be non-weightbearing on this a all wheelchair has been ordered for you. Use your previously prescribed hydrocodone for pain Case management make arrangements for follow-up with orthopedics Coding Level of Care Code ED Talent Development Coordinator for Tuan Morrissey
--- NOTE | 2023-01-23 13:49 | ECG_ITS ---
[facility] Test Date: 2023-01-23 Pat Name: Sultana Payne Department: Room: Gender: Female Bass Singer: : 1955 Requested By: Scottie Cruz Order Number: [id number] Felix MD: Kyel Carrero M.D. Measurements Intervals [place] Rate: 68 P: 58 MT: 126 QRS: 58 QRSD: 86 T: 73 QT: 420 QTc: 448 Interpretive Statements SINUS RHYTHM POSSIBLE LEFT ATRIAL ENLARGEMENT [-0.1mV P-WAVE IN V1/V2] Compared to ECG 08/05/2021 19:05:15 Sinus bradycardia no longer present Electronically Signed On 01-24-2023 0:13:08 CDT by Kyle Carrero M.D. [id number]
[2023-01-23 14:00] VITALS: PULSE 76; RESP 16; O2SAT 98
[2023-01-23 14:04] LABS: Basophils # 0.1 10^3/uL (0.0-0.1); Basophils % 0.4 %; Eosinophils # 0.1 10^3/uL (0.0-0.8); Eosinophils % 0.4 %; Hematocrit 40.1 % (37.0-47.0); Lymphocytes # 2.1 10^3/uL (0.8-4.8); Lymphocytes % 15.2 %; Mean Corpuscular HGB Conc 32.4 g/dL (30.0-36.0); Mean Corpuscular Hemoglobin 29.6 pg (28.0-34.0); Mean Corpuscular Volume 91.3 fl (81-99); Mean Platelet Volume 10.6 fL (7.4-10.4); Monocytes # 1.2 10^3/uL (0.2-0.9); Monocytes % 8.5 %; Neutrophils # 10.33 10^3/uL (1.8-7.7); Neutrophils % 74.8 %; Nucleated Red Blood Cells % 0 %; Platelet Count 280 10^3/cmm (130-400); Red Blood Count 4.39 10^6/uL (4.1-5.3); Red Cell Distribution Width 14.7 % (12.1-15.1); White Blood Count 13.8 10^3/uL (4.0-10.0)
[2023-01-23 14:28] LABS: Alanine Aminotransferase 10 U/L (0-33); Albumin Level 3.4 g/dL (3.5-5.2); Alkaline Phosphatase 87 U/L (35-105); Anion Gap 13.4 (5-19); Aspartate Amino Transferase 19 U/L (0-32); Blood Urea Nitrogen 11 mg/dL (8-23); Calcium 8.5 mg/dL (8.5-10.5); Carbon Dioxide 27 mmol/L (22-29); Chloride 97 mmol/L (98-107); Globulin 2.7 g/dL (1.3-4.6); Glomerular Filtration Rate 62.8 mL/min (90-130); Glucose 99 mg/dL (65-115); Osmolality Calculated 277 mOsm/kg (285-295); Potassium 3.4 mmol/L (3.5-5.1); Sodium 134 mmol/L (136-145); Total Bilirubin 0.5 mg/dL (0.15-1.2); Total Protein 6.1 g/dL (6.6-8.7)
[2023-01-23 14:34] LABS: Troponin(5th) Baseline 8 ng/L (0-10)
[2023-01-23 15:07] VITALS: BP 102/56; BP 73/54; BP 88/58; PULSE 78; PULSE 84; PULSE 97
[2023-01-23 15:18] LABS: Specific Gravity, Urine 1.015 (1.005-1.030); Urine Appearance Clear (CLEAR); Urine Color Dark Yellow (Yellow); pH Urine 6 (5-7)
[2023-01-23 15:19] LABS: Add Urine Microscopic? YES; Bilirubin Urine Neg (Negative); Blood Urine Neg (Negative); Glucose Urine UA Norm (Normal); Ketones Urine Negative (Negative); Leukocyte Esterase Urine 2+ (Negative); Nitrate Urine Negative (Negative); Protein Urine 1+ (Negative); Urobilinogen Urine Norm (Negative); WBC Urine 15-25 /hpf (0-5)
[2023-01-23 15:20] LABS: Add Urine Culture? Yes; Bacteria Urine 1+ /hpf; Mucus Urine 1+ /hpf
--- NOTE | 2023-01-23 15:49 | ECG_ITS ---
[facility] Test Date: 2023-01-23 Pat Name: Sultana Payne Department: Room: Gender: Female Pole Cutter: : 1955 Requested By: Scottie Cruz Order Number: [id number] Felix MD: Jah Darling M.D. Measurements Intervals [place] Rate: 70 P: 53 [place]: 133 QRS: 56 QRSD: 84 T: 71 QT: 424 QTc: 459 Interpretive Statements SINUS RHYTHM Compared to ECG 01/23/2023 14:19:13 No significant changes Electronically Signed On 01-24-2023 17:01:53 CDT by Jah Darling M.D. [id number]
[2023-01-23 16:00] VITALS: BP 106/68; PULSE 69; RESP 18; O2SAT 97
--- NOTE | 2023-01-23 16:01 | XRR_ITS ---
PROCEDURE INFORMATION: Exam: XR Right Ankle Exam date and time: 01/23/2023 4:42 PM Age: 67 years old Clinical indication: Injury or trauma; Fall; Puncture; Ankle; Right; Foreign body involvement not specified; Patient HX: HX of ovarian cancer TECHNIQUE: Imaging protocol: Radiologic exam of the right ankle. Views: 3 or more views. COMPARISON: No relevant prior studies available. FINDINGS: Bones/joints: Minimally displaced oblique fracture in the distal right fibula, at the level of the ankle joint. The talus and tibia are intact. No widening of the ankle mortise. Soft tissues: Lateral soft tissue swelling. XR/XR ankle RT min 3V* [id number] IMPRESSION: Distal right fibula fracture.
[2023-01-23] MEDS: sodium chloride 0.9% 1,000 ML 999 ML IV (16:03)
[2023-01-23 16:06] LABS: Troponin 5 2HR 8.06 ng/L (0-10)
[2023-01-23 16:14] LABS: Troponin 5 2HR Delta 0.06 ABS# (0-10)
[2023-01-23 18:01] VITALS: BP 106/58; PULSE 85; RESP 18; O2SAT 98
--- NOTE | 2023-01-24 08:19 | DCPLANNER ---
Addendum entered by Katarzyna Colmenares 01/27/23 10:36: Patient had a follow up appointment scheduled with ortho - patient did attend appointment. Addendum entered by Katarzyna Colmenares 01/25/23 13:16: Patient has a follow up appointment scheduled for , January 26, 2023 at 1:[address] Meza at ortho. Original Note: ar manager had message to schedule a follow up appointment for patient with ortho. ar manager sent patients information to the front office staff at ortho. Patients information will be printed and reviewed. Clinic will call patient with appointment information.
== END 2023-01-23 18:02 | disposition home or self-care (01) ==
PROVIDERS: Family Medicine; Emergency Provider Emergency Medicine; PCP Family Medicine
DX: I95.1 Orthostatic hypotension (principal); S82.831A Other fracture of upper and lower end of right fibula, initial encounter for closed fracture; F17.210 Nicotine dependence, cigarettes, uncomplicated; W18.39XA Other fall on same level, initial encounter
CPT/HCPCS: 36415; 70450; 71045; 72125; 73610; 80053; 81001; 84484; 85025; 87086; 93005; 99285; J7030

== ENCOUNTER 2023-01-26 15:24 | Outpatient (CLI) | payer MEDICARE, SELFPAY | END 2023-01-26 15:25 | disposition home or self-care (01) | LOC: SPT 15:26 | PROVIDERS: PCP Family Medicine; Visit Provider Podiatrist Foot & Ankle Surgery | DX: Z46.89 Encounter for fitting and adjustment of other specified devices (principal); S82.831D Other fracture of upper and lower end of right fibula, subsequent encounter for closed fracture with routine healing; X58.XXXD Exposure to other specified factors, subsequent encounter | CPT/HCPCS: 97760; 99203; L4361 ==

== ENCOUNTER → 2023-02-10 10:59 | Outpatient (BNVA) | payer MEDICARE, SELFPAY | PROVIDERS: PCP Family Medicine; Visit Provider Podiatrist Foot & Ankle Surgery | DX: S82.831A Other fracture of upper and lower end of right fibula, initial encounter for closed fracture (principal); X58.XXXA Exposure to other specified factors, initial encounter | CPT/HCPCS: 73610; 99213 ==

== ENCOUNTER → 2023-03-02 11:09 | Outpatient (BNVA) | payer MEDICARE, SELFPAY | PROVIDERS: PCP Family Medicine; Visit Provider Podiatrist Foot & Ankle Surgery | DX: S82.831D Other fracture of upper and lower end of right fibula, subsequent encounter for closed fracture with routine healing (principal); X58.XXXD Exposure to other specified factors, subsequent encounter | CPT/HCPCS: 73610; 97760; 99213; L1902 ==

== ENCOUNTER 2023-03-02 14:48 | Outpatient (CLI) | payer MEDICARE, SELFPAY | END 2023-03-02 14:49 | disposition home or self-care (01) | LOC: SPT 14:55 | PROVIDERS: PCP Family Medicine; Visit Provider Podiatrist Foot & Ankle Surgery | DX: Z46.89 Encounter for fitting and adjustment of other specified devices (principal); S82.831D Other fracture of upper and lower end of right fibula, subsequent encounter for closed fracture with routine healing; X58.XXXD Exposure to other specified factors, subsequent encounter | CPT/HCPCS: 97760; 99213; L1902 ==

== ENCOUNTER → 2023-03-23 10:34 | Outpatient (BNVA) | payer MEDICARE, SELFPAY | PROVIDERS: PCP Family Medicine; Visit Provider Podiatrist Foot & Ankle Surgery | DX: S99.911A Unspecified injury of right ankle, initial encounter (principal); S82.831A Other fracture of upper and lower end of right fibula, initial encounter for closed fracture; X58.XXXA Exposure to other specified factors, initial encounter; G57.91 Unspecified mononeuropathy of right lower limb | CPT/HCPCS: 99213 ==

== ENCOUNTER → 2023-11-15 12:57 | Outpatient (BNVA) | payer MEDICARE, SELFPAY | PROVIDERS: PCP Family Medicine; Visit Provider Internal Medicine | DX: R07.9 Chest pain, unspecified (principal); R06.02 Shortness of breath; T78.40XA Allergy, unspecified, initial encounter; Y99.9 Unspecified external cause status; F17.210 Nicotine dependence, cigarettes, uncomplicated | CPT/HCPCS: 99213 ==

== ENCOUNTER 2024-01-15 09:51 | Outpatient (CLI) | payer MEDICARE, SELFPAY ==
--- NOTE | 2024-01-15 | ECG_ITS ---
[facility] Test Date: 2024-01-15 Pat Name: Sultana Payne Department: Room: Gender: Female Sample Maker Hand: Almita Polk : 1955 Requested By: Chel Phelan Order Number: [id number] Felix MD: Kyle Carrero M.D. Interpretive Statements NAME OF STUDY: LEXISCAN SESTAMIBI STRESS TEST INDICATION: Chest Pain, PROCEDURE: At the baseline, the EKG revealed sinus bradycardia. Poor R wave progression.. The baseline heart was 58 bpm with a blood pressue of 129/78 mm of Hg Lexiscan was infused over a period of 20 seconds. A total of 0.4 milligrams of Lexiscan was infused. The stress phase was continued for a total of 5 minutes. Heart rate at the end of the stress phase was 97 bpm with a blood pressure 109/62 mm of Hg. The EKG at the peak infusion revealed no significant changes. Occasional PVCs were noted during the peak infusion Sestamibi was injected 20 seconds after the Lexiscan infusion. Heart rate at the end of the recovery phase was left anterior descending artery bpm with a blood pressure of 120/69 mm of Hg. CONCLUSION: 1. No significant EKG changes with the LexiScan infusion 2. No LexiScan induced chest pain or cardiac arrhythmia 3. Normal blood pressure and heart rate response 4. Sestamibi/sestamibi perfusion scan pending; see separate report. Electronically Signed On 01-20-2024 12:15:03 CDT by Kyle Carrero M.D. [id number]
[2024-01-15 10:19] VITALS: BMI 23.6
--- NOTE | 2024-01-15 10:20 | NMCV_ITS ---
NM luisito perf SPECT r/s* [id number] Sultana Payne Age: 68 Gender: F : 1955 Exam Date: 01/15/2024 10:20 Ordering Phys: Chel Mckenzie MD Technologist: MERCY Hutchins Exam Location: [facility] Indications: CHEST PAIN STRESS TEST Please see separate stress test report in [facility] for full findings IMAGE PROTOCOL Rest/Stress 1 Lexiscan Day Radiopharmaceutical Dose (mCi) Administration Site Administered by Rest: Tc-99m 10.7 IV MERCY Mendes Sestamibi Stress:Tc-99m 32.7 IV MERCY Hutchins Sestamiwally Rest: 01/15/2024 60 Discovery 630 Stress: 01/15/2024 30 Discovery 630 0.4mg Lexiscan. Images obtained in supine and prone position. SPECT RESULTS Technical Quality: Excellent Raw Data Analysis: Normal Image Corrections: No attenuation or motion correction applied Summed Stress Score: 2 Summed Rest Score: 0 Summed Difference Score: 2 PERFUSION FINDINGS Small area of inconsistent radiotracer uptake seen in apical lateral and apical anterior wall. This likely represent attenuation artifact. No evidence of ischemia. FUNCTIONAL RESULTS (calculated via Gated SPECT) Stress Image LV EF (%): 67 Stress EDV (mL):79 TID: 1.17 Stress ESV (mL):26 FUNCTIONAL FINDINGS: There is normal left ventricular systolic function. IMPRESSIONS 1. Attenuation artifact noted in the apical lateral and apical anterior billings. 2. LV systolic function is normal Jah Darling MD (Electronically Signed) Final Date: 16 Jan 2024 09:37 S
[2024-01-15] MEDS: regadenoson 0.4 Mg/5 ml Syringe 0.400000000000000022 MG IVP (11:33)
[2024-01-15 11:51] VITALS: BP 120/69; PULSE 82
== END 2024-01-15 09:52 | disposition home or self-care (01) ==
PROVIDERS: Family Provider Internal Medicine; PCP Family Medicine; Visit Provider Family Medicine
DX: R07.9 Chest pain, unspecified (principal)
CPT/HCPCS: 36415; 78452; 93017; 96374; A9500; J2785

== ENCOUNTER → 2024-03-22 10:49 | Outpatient (BNVA) | payer MEDICARE, SELFPAY | PROVIDERS: Family Provider Internal Medicine; PCP Family Medicine; Visit Provider Specialist | DX: M17.12 Unilateral primary osteoarthritis, left knee | CPT/HCPCS: 20610; 73560; 73565; 99204; J1100; J2795; J3301 ==

== ENCOUNTER 2024-04-29 14:37 | Outpatient (CLI) | payer MEDICARE, SELFPAY ==
--- NOTE | 2024-04-29 14:42 | MM_ITS ---
WS: [id number] BILATERAL 3D TOMOSYNTHESIS DIGITAL SCREENING MAMMOGRAPHY WITH CAD CLINICAL INFORMATION: SCREENING HISTORY: Screening mammogram. No current complaints. COMPARISON: 2020 TECHNIQUE: Bilateral CC and MLO views. FINDINGS: Scattered fibroglandular densities bilaterally. No suspicious focal mass, asymmetry, calcifications, or architectural distortion. No evidence of malignancy. Stable punctate calcifications RIGHT breast. Stable nodular breast tissue anterior breast bilaterally. MM/[place] [id number] IMPRESSION: BI-RADS: 2-Benign FOLLOW UP: 1 Year Follow-up Recommend return to annual screening mammography.
== END 2024-04-29 14:38 | disposition home or self-care (01) ==
PROVIDERS: Family Provider Internal Medicine; PCP Family Medicine; Visit Provider Family Medicine
DX: Z12.31 Encounter for screening mammogram for malignant neoplasm of breast (principal)
CPT/HCPCS: 77063; 77067

== ENCOUNTER → 2024-05-22 13:13 | Outpatient (BNVA) | payer MEDICARE, SELFPAY | PROVIDERS: Family Provider Internal Medicine; PCP Family Medicine; Visit Provider Nurse Practitioner Family | DX: L82.1 Other seborrheic keratosis (principal); L81.4 Other melanin hyperpigmentation; D22.5 Melanocytic nevi of trunk; Z12.83 Encounter for screening for malignant neoplasm of skin | CPT/HCPCS: 99213 ==

== ENCOUNTER → 2024-08-16 10:23 | Outpatient (BNVA) | payer MEDICARE, SELFPAY | PROVIDERS: Family Provider Internal Medicine; PCP Family Medicine; Visit Provider Specialist | DX: M17.12 Unilateral primary osteoarthritis, left knee; Z71.89 Other specified counseling | CPT/HCPCS: 20610; J1100; J2795; J3301 ==

== ENCOUNTER → 2024-11-22 10:41 | Outpatient (BNVA) | payer MEDICARE, SELFPAY | PROVIDERS: Family Provider Internal Medicine; PCP Family Medicine; Visit Provider Specialist | DX: M17.12 Unilateral primary osteoarthritis, left knee (principal); Z71.89 Other specified counseling | CPT/HCPCS: 20610; J1100; J2795; J3301; J9999 ==

== ENCOUNTER → 2024-12-23 15:42 | Outpatient (BNVA) | payer MEDICARE, SELFPAY | PROVIDERS: Family Provider Internal Medicine; PCP Family Medicine; Visit Provider Internal Medicine Cardiovascular Disease | DX: I25.10 Atherosclerotic heart disease of native coronary artery without angina pectoris (principal); I10 Essential (primary) hypertension; R06.02 Shortness of breath; F17.210 Nicotine dependence, cigarettes, uncomplicated | CPT/HCPCS: 99214 ==

== ENCOUNTER → 2025-03-07 10:42 | Outpatient (BNVA) | payer MEDICARE, SELFPAY | PROVIDERS: Family Provider Internal Medicine; PCP Family Medicine; Visit Provider Specialist | DX: M17.12 Unilateral primary osteoarthritis, left knee (principal) | CPT/HCPCS: 20610; J1100; J2795; J3301; J9999 ==

== ENCOUNTER → 2025-05-22 13:48 | Outpatient (BNVA) | payer MEDICARE, SELFPAY | PROVIDERS: Family Provider Internal Medicine; PCP Family Medicine; Visit Provider Nurse Practitioner Family | DX: L82.1 Other seborrheic keratosis (principal); D22.5 Melanocytic nevi of trunk; L81.4 Other melanin hyperpigmentation; S30.861A Insect bite (nonvenomous) of abdominal wall, initial encounter; S20.162A Insect bite (nonvenomous) of breast, left breast, initial encounter; X58.XXXA Exposure to other specified factors, initial encounter; D48.5 Neoplasm of uncertain behavior of skin; L57.0 Actinic keratosis | CPT/HCPCS: 10120; 11102; 17000; 99213 ==

== ENCOUNTER 2025-06-25 14:37 | Outpatient (CLI) | payer MEDICARE, SELFPAY ==
--- NOTE | 2025-06-25 14:46 | MM_ITS ---
WS: [id number] BILATERAL 3D TOMOSYNTHESIS DIGITAL SCREENING MAMMOGRAPHY WITH CAD CLINICAL INFORMATION: SCREENING HISTORY: Screening mammogram. No current complaints. COMPARISON: 2023 TECHNIQUE: Bilateral CC and MLO views. FINDINGS: The breasts are composed of heterogeneous fibroglandular density tissue, which can limit the detection of small underlying mass lesions. No suspicious mass, asymmetry, calcifications, or architectural distortion. No evidence of malignancy. Incidental punctate calcifications RIGHT breast. Vascular calci fications. MM/MM [facility] tomosynthesis [id number] IMPRESSION: DENSITY: The breasts are heterogeneously dense, which may obscure small masses. BI-RADS: 2 - Benign FOLLOW UP: 1 Year Follow-up Recommend return to annual screening mammography.
== END 2025-06-25 14:38 | disposition home or self-care (01) ==
LOC: RAD 14:39
PROVIDERS: Family Provider Internal Medicine; PCP Family Medicine; Visit Provider Nurse Practitioner Family
DX: Z12.31 Encounter for screening mammogram for malignant neoplasm of breast (principal); R92.323 Mammographic fibroglandular density, bilateral breasts; R92.333 Mammographic heterogeneous density, bilateral breasts; R92.1 Mammographic calcification found on diagnostic imaging of breast
CPT/HCPCS: 77063; 77067

== ENCOUNTER → 2025-06-27 10:55 | Outpatient (BNVA) | payer MEDICARE, OTHER, SELFPAY | PROVIDERS: Family Provider Internal Medicine; PCP Family Medicine; Visit Provider Specialist | DX: M17.12 Unilateral primary osteoarthritis, left knee (principal) | CPT/HCPCS: 20610; J1100; J2795; J3301; J9999 ==